=== PATIENT | female | born 1945 | race Caucasian/White ===

== ENCOUNTER 2019-01-27 07:17 | Inpatient (IN) ==
[2019-01-24 13:30] LABS: Basophils # 0.1 10*3/uL (0.0-0.2); Basophils % 0.8 % (0.0-0.8); Eosinophils # 0.2 10*3/uL (0.0-0.87); Eosinophils % 2.3 % (0.00-10.9); Hematocrit 30.7 VOL% (35.7-47.0); Hemoglobin 9.3 GM/DL (12.0-16.0); Immature Granulocytes % 1.3 %; Immature Granulocytes Absolute 0.13 #; Lymphocytes # 1.7 10*3/uL (1.4-4.0); Lymphocytes % 17.6 % (21.3-54.2); Mean Corpuscular HGB Conc 30.3 GM/DL (32-36); Mean Corpuscular Volume 88.2 FL (87-102); Mean Platelet Volume 8.3 FL (9.6-12.0); Monocytes % 5.6 % (1.7-12.7); Neutrophils % 72.4 % (38.7-73.9); Platelet Count 735 T/CUMM (130-400); Red Blood Count 3.48 MC/CUMM (3.8-5.5); Red Cell Distribution Width 14.8 % (9.3-17.3); White Blood Count 9.8 T/CUMM (4-12)
[2019-01-24 14:08] LABS: Alanine Aminotransferase 30 U/L (13-56); Albumin 2.8 G/DL (3.4-5.0); Alkaline Phosphatase 199 U/L (45-117); Aspartate Amino Transferase 42 U/L (0-37); Bilirubin,Total < 0.39 MG/DL (0.2-1.0); Blood Urea Nitrogen 8 MG/DL (7-18); Calcium 9.5 MG/DL (8.5-10.1); Estimated Glom Filtration Rate 76 ML/MIN; Glucose 90 MG/DL (74-106); Osmolality,Calculated 272.7 MOS/KG (273-304); Total Protein 7.3 G/DL (6.4-8.3)
[~2019-01-27 07:17] MED LIST: ALVIMOPAN 12 MG CAPSULE PO ONE; LACTATED RINGERS 1,000 ML IV SCH; cefOXitin 1,000 MG in SYRINGE 1 EACH IV ONE
[2019-01-27] MEDS ORDERED: ALVIMOPAN 12 MG CAPSULE ONE (07:25)
[2019-01-27] MEDS ORDERED: DIAZEPAM 5 MG TABLET ONE (08:00)
[2019-01-27] MEDS ORDERED: SCOPOLAMINE 1.5 MG PATCH TRANSDERM ONE ×2 (08:00→08:03)
[2019-01-27] MEDS ORDERED: FAMOTIDINE 20 MG TABLET ONE (08:00)
[2019-01-27] MEDS ORDERED: FAMOTIDINE 20 MG TABLET PO STA (08:02)
[2019-01-27] MEDS ORDERED: DIAZEPAM 5 MG TABLET PO STA (08:02)
[2019-01-27] MEDS ORDERED: FAMOTIDINE 20 MG TABLET PO ONE (08:03)
[2019-01-27] MEDS ORDERED: SCOPOLAMINE 1.5 MG PATCH TRANSDERM STA (08:03)
[2019-01-27] MEDS ORDERED: BUPIVACAINE 0.25% /EPI 10 ML VIAL ONE (08:09)
[2019-01-27] MEDS ORDERED: LIDOCAINE 1%/EPI INJ 20 ML VIAL ONE (08:09)
[2019-01-27] MEDS ORDERED: TISSUE ADHESIVE 1 EACH APPLICATOR TOP ONE (08:09)
[2019-01-27] MEDS ORDERED: BUPIVACAINE 0.5% 50 ML VIAL ONE (08:33)
[2019-01-27] MEDS ORDERED: LIDOCAINE 1% 5 ML VIAL ONE (08:33)
[2019-01-27] MEDS ORDERED: DEXAMETHASONE 4 MG/1 ML VIAL ONE ×2 (08:33→11:52)
[2019-01-27 11:09] LABS: Apearance,Urine CLEAR (Clear); Bacteria,Urine Occasional /HPF (Few); Bilirubin,Urine Negative (Negative); Blood, Urine Negative (Negative); Glucose,Urine (UA) Negative (Negative); Ketones,Urine Negative (Negative); Mucus,Urine Occasional /LPF (Occasional); Nitrite,Urine Negative (Negative); Protein,Urine Negative; RBC,Urine 1 /HPF (0-4); Urine Color Yellow (Yellow); Urine Specific Gravity 1.011 (1.001-1.035); Urine Urobilinogen < 2.0 EU/DL (0.2-1.0); WBC,Urine <1 /HPF (0-6)
[2019-01-27] MEDS ORDERED: MIDAZOLAM 2 MG/2 ML VIAL ONE (11:49)
[2019-01-27] MEDS ORDERED: SEVOFLURANE 1 UNIT/15 MINUTE INH ONE (11:49)
[2019-01-27] MEDS ORDERED: fentaNYL 100 MCG/2 ML VIAL ONE (11:49)
[2019-01-27] MEDS ORDERED: ROCURONIUM 100 MG/10 ML VIAL IV ONE (11:50)
[2019-01-27] MEDS ORDERED: SUCCINYLCHOLINE 200 MG/10 ML VIAL ONE (11:50)
[2019-01-27] MEDS ORDERED: PROPOFOL 200 MG/20 ML VIAL IV ONE (11:50)
[2019-01-27] MEDS ORDERED: LIDOCAINE 2% 5 ML VIAL ONE (11:50)
[2019-01-27] MEDS ORDERED: ETOMIDATE 40 MG/20 ML VIAL IV ONE (11:50)
[2019-01-27] MEDS ORDERED: PHENYLEPHRINE 1 MG/10 ML SYRINGE IV ONE (11:52)
[2019-01-27] MEDS ORDERED: ePHEDrine 50 MG/ML AMP ONE (11:52)
[2019-01-27] MEDS ORDERED: GLYCOPYRROLATE 0.4 MG/2 ML VIAL ONE (11:52)
[2019-01-27] MEDS ORDERED: LACTATED RINGERS 1,000 ML IV ONE (11:52)
[2019-01-27] MEDS ORDERED: NEOSTIGMINE 10 MG/10 ML VIAL ONE (11:52)
[2019-01-27] MEDS ORDERED: METOPROLOL TARTRATE 5 MG/5 ML VIAL IV ONE (11:52)
[2019-01-27] MEDS ORDERED: ONDANSETRON 4 MG/2 ML VIAL ONE (11:52)
[2019-01-27] MEDS ORDERED: MORPHINE 4 MG/1 ML VIAL IV PRN (13:17)
[2019-01-27] MEDS: DEXTROSE 5% LACTATED RINGERS 1,000 ML IV SCH ×2 (14:06→21:18)
[2019-01-27 14:21] LABS: Hematocrit 28.1 VOL% (35.7-47.0); Hemoglobin 8.5 GM/DL (12.0-16.0)
[2019-01-27] MEDS: ONDANSETRON 4 MG/2 ML VIAL IV PRN ×2 (16:22→20:09)
[2019-01-27] MEDS: cefOXitin 2,000 MG in SYRINGE 1 EACH IV SCH (17:08)
[2019-01-27] MEDS: ALVIMOPAN 12 MG CAPSULE PO SCH (21:23)
[2019-01-27 21:44] LABS: Hematocrit 27.3 VOL% (35.7-47.0); Hemoglobin 8.6 GM/DL (12.0-16.0)
[2019-01-28] MEDS: cefOXitin 2,000 MG in SYRINGE 1 EACH IV SCH ×2 (00:15→06:02)
[2019-01-28] MEDS: DEXTROSE 5% LACTATED RINGERS 1,000 ML IV SCH ×2 (04:37→16:12)
[2019-01-28] MEDS: ONDANSETRON 4 MG/2 ML VIAL IV PRN (04:42)
[2019-01-28 05:14] LABS: Basophils % 0.1 % (0.0-0.8); Hematocrit 27.2 VOL% (35.7-47.0); Hemoglobin 8.3 GM/DL (12.0-16.0); Immature Granulocytes Absolute 0.21 #; Lymphocytes # 1.2 10*3/uL (1.4-4.0); Lymphocytes % 5.6 % (21.3-54.2); Mean Corpuscular HGB Conc 30.5 GM/DL (32-36); Mean Corpuscular Volume 86.9 FL (87-102); Mean Platelet Volume 8.5 FL (9.6-12.0); Monocytes % 6.6 % (1.7-12.7); Neutrophils % 86.7 % (38.7-73.9); Platelet Count 631 T/CUMM (130-400); Red Blood Count 3.13 MC/CUMM (3.8-5.5); White Blood Count 21.6 T/CUMM (4-12)
[2019-01-28 05:30] LABS: Calcium 8.9 MG/DL (8.5-10.1)
[2019-01-28 05:42] LABS: Lymphocytes 6 % (20-55); Segmented Neutrophils 91 % (50-85); Total Cells Counted 100
[2019-01-28 05:43] LABS: Anisocytosis 1+; Ovalocytes Few; Platelet Estimate Increased
[2019-01-28] MEDS: FAMOTIDINE 20 MG TABLET PO SCH ×3 (06:00→21:23)
[2019-01-28] MEDS ORDERED: ONDANSETRON 4 MG/2 ML VIAL IV ONE (07:16)
[2019-01-28] MEDS ORDERED: clonazePAM 0.5 MG TABLET PO PRN (08:36)
[2019-01-28] MEDS: PROMETHAZINE 25 MG/1 ML VIAL IM PRN (09:00)
[2019-01-28] MEDS: KETOROLAC 15 MG/1 ML VIAL IV SCH ×3 (09:01→21:24)
[2019-01-28] MEDS: ALVIMOPAN 12 MG CAPSULE PO SCH ×2 (09:28→21:23)
[2019-01-28] MEDS: SIMETHICONE CHEW 80 MG TABLET PO PRN ×2 (10:50→18:20)
[2019-01-28] MEDS ORDERED: HYDROmorphone 2 MG/1 ML VIAL IV PRN ×2 (11:45)
[2019-01-28] MEDS: ESCITALOPRAM 10 MG TABLET PO SCH (21:23)
[2019-01-29] MEDS: DEXTROSE 5% LACTATED RINGERS 1,000 ML IV SCH ×3 (00:48→18:22)
[2019-01-29] MEDS: KETOROLAC 15 MG/1 ML VIAL IV SCH ×4 (03:23→21:46)
[2019-01-29 05:38] LABS: Basophils % 0.3 % (0.0-0.8); Eosinophils # 0.1 10*3/uL (0.0-0.87); Eosinophils % 0.8 % (0.00-10.9); Hematocrit 23.4 VOL% (35.7-47.0); Immature Granulocytes % 0.9 %; Immature Granulocytes Absolute 0.12 #; Lymphocytes # 1.5 10*3/uL (1.4-4.0); Lymphocytes % 11.8 % (21.3-54.2); Mean Corpuscular HGB Conc 29.9 GM/DL (32-36); Mean Corpuscular Volume 89.3 FL (87-102); Mean Platelet Volume 8.7 FL (9.6-12.0); Monocytes % 6.3 % (1.7-12.7); Neutrophils % 79.9 % (38.7-73.9); Platelet Count 498 T/CUMM (130-400); Red Blood Count 2.62 MC/CUMM (3.8-5.5); Red Cell Distribution Width 15.4 % (9.3-17.3); White Blood Count 12.8 T/CUMM (4-12)
[2019-01-29 06:03] LABS: Calcium 8.5 MG/DL (8.5-10.1); Osmolality,Calculated 273.7 MOS/KG (273-304)
[2019-01-29] MEDS: FAMOTIDINE 20 MG TABLET PO SCH ×2 (09:27→21:45)
[2019-01-29] MEDS: ALVIMOPAN 12 MG CAPSULE PO SCH ×2 (09:27→21:45)
[2019-01-29] MEDS: ONDANSETRON 4 MG/2 ML VIAL IV PRN (09:31)
[2019-01-29] MEDS: SIMETHICONE CHEW 80 MG TABLET PO PRN (18:18)
[2019-01-29] MEDS: ESCITALOPRAM 10 MG TABLET PO SCH (21:46)
[2019-01-30] MEDS: KETOROLAC 15 MG/1 ML VIAL IV SCH ×4 (02:38→20:23)
[2019-01-30] MEDS: DEXTROSE 5% LACTATED RINGERS 1,000 ML IV SCH ×2 (02:39→10:07)
[2019-01-30 05:37] LABS: Basophils # 0.1 10*3/uL (0.0-0.2); Basophils % 0.5 % (0.0-0.8); Eosinophils # 0.4 10*3/uL (0.0-0.87); Eosinophils % 4.1 % (0.00-10.9); Hemoglobin 6.6 GM/DL (12.0-16.0); Immature Granulocytes % 0.9 %; Immature Granulocytes Absolute 0.09 #; Lymphocytes # 2.1 10*3/uL (1.4-4.0); Lymphocytes % 20.9 % (21.3-54.2); Mean Corpuscular Volume 89.1 FL (87-102); Mean Platelet Volume 8.8 FL (9.6-12.0); Monocytes % 5.6 % (1.7-12.7); Platelet Count 494 T/CUMM (130-400); Red Blood Count 2.47 MC/CUMM (3.8-5.5); Red Cell Distribution Width 15.3 % (9.3-17.3); White Blood Count 9.9 T/CUMM (4-12)
[2019-01-30 05:52] LABS: Calcium 9.1 MG/DL (8.5-10.1); Osmolality,Calculated 277.4 MOS/KG (273-304)
[2019-01-30] MEDS ORDERED: SODIUM CHLORIDE 0.9% 1,000 ML IV PRN (07:50)
[2019-01-30] MEDS: FAMOTIDINE 20 MG TABLET PO SCH ×2 (10:06→20:19)
[2019-01-30] MEDS: ALVIMOPAN 12 MG CAPSULE PO SCH ×2 (10:06→20:19)
[2019-01-30] MEDS: PROMETHAZINE 25 MG/1 ML VIAL IM PRN (10:52)
[2019-01-30 14:33] LABS: Hematocrit 27.4 VOL% (35.7-47.0)
[2019-01-30 14:37] LABS: Hemoglobin 8.4 GM/DL (12.0-16.0)
[2019-01-30] MEDS: ESCITALOPRAM 10 MG TABLET PO SCH (20:19)
[2019-01-31] MEDS: KETOROLAC 15 MG/1 ML VIAL IV SCH ×4 (03:02→21:25)
[2019-01-31 05:14] LABS: Basophils # 0.1 10*3/uL (0.0-0.2); Basophils % 0.7 % (0.0-0.8); Eosinophils # 0.4 10*3/uL (0.0-0.87); Eosinophils % 4.6 % (0.00-10.9); Hematocrit 25.7 VOL% (35.7-47.0); Hemoglobin 7.8 GM/DL (12.0-16.0); Immature Granulocytes % 1.3 %; Immature Granulocytes Absolute 0.11 #; Lymphocytes # 1.8 10*3/uL (1.4-4.0); Lymphocytes % 21.2 % (21.3-54.2); Mean Corpuscular HGB Conc 30.4 GM/DL (32-36); Mean Platelet Volume 8.5 FL (9.6-12.0); Monocytes % 6.8 % (1.7-12.7); Neutrophils % 65.4 % (38.7-73.9); Platelet Count 452 T/CUMM (130-400); Red Blood Count 2.92 MC/CUMM (3.8-5.5); Red Cell Distribution Width 15.3 % (9.3-17.3); White Blood Count 8.5 T/CUMM (4-12)
[2019-01-31 05:43] LABS: Calcium 8.9 MG/DL (8.5-10.1); Osmolality,Calculated 278.4 MOS/KG (273-304)
[2019-01-31] MEDS: FAMOTIDINE 20 MG TABLET PO SCH ×2 (09:01→21:26)
[2019-01-31] MEDS: ALVIMOPAN 12 MG CAPSULE PO SCH (09:01)
[2019-01-31] MEDS: ENOXAPARIN 40 MG/0.4 ML SYRINGE SUBCUT SCH (10:46)
[2019-01-31] MEDS: ESCITALOPRAM 10 MG TABLET PO SCH (21:26)
[2019-02-01] MEDS: KETOROLAC 15 MG/1 ML VIAL IV SCH ×2 (02:46→09:38)
[2019-02-01 05:23] LABS: Basophils # 0.1 10*3/uL (0.0-0.2); Basophils % 0.6 % (0.0-0.8); Eosinophils # 0.4 10*3/uL (0.0-0.87); Eosinophils % 5.3 % (0.00-10.9); Hematocrit 23.5 VOL% (35.7-47.0); Immature Granulocytes % 1.8 %; Immature Granulocytes Absolute 0.14 #; Lymphocytes % 26.3 % (21.3-54.2); Mean Corpuscular HGB Conc 29.8 GM/DL (32-36); Mean Platelet Volume 8.9 FL (9.6-12.0); Monocytes % 7.6 % (1.7-12.7); Neutrophils % 58.4 % (38.7-73.9); Platelet Count 455 T/CUMM (130-400); Red Blood Count 2.64 MC/CUMM (3.8-5.5); Red Cell Distribution Width 15.1 % (9.3-17.3); White Blood Count 7.8 T/CUMM (4-12)
[2019-02-01] MEDS: FAMOTIDINE 20 MG TABLET PO SCH (09:38)
[2019-02-01 12:00] VITALS: BP 127/78
[2019-02-01] MEDS: ENOXAPARIN 40 MG/0.4 ML SYRINGE SUBCUT SCH (12:18)
[2019-02-01 12:38] LABS: Hematocrit 26.3 VOL% (35.7-47.0); Hemoglobin 8.1 GM/DL (12.0-16.0)
== END 2019-02-01 14:41 | disposition home or self-care (01) | DRG 330 ==
LOC: N.OR 07:17 → N.SDSINP 07:18 → N.3E 12:50
PROVIDERS: ADMIT Surgery; ATTEND Surgery